=== PATIENT | male | born 1980 | race Two or more races ===

== ENCOUNTER 2024-05-13 10:05 | Emergency (ER) | payer OTHER ==
[~2024-05-13] VITALS: Ht 162.6 cm; Wt 89.4 kg
[2024-05-13 10:43] VITALS: BP 146/79; TEMP 98.6
[2024-05-13 11:13] VITALS: O2SAT 99
== END 2024-05-13 11:14 | disposition home or self-care (01) ==
LOC: ER 10:28
DX: F22 Delusional disorders (principal); F20.9 Schizophrenia, unspecified; I10 Essential (primary) hypertension; Z88.0 Allergy status to penicillin; Z88.8 Allergy status to other drugs, medicaments and biological substances; Z88.6 Allergy status to analgesic agent
CPT/HCPCS: J7030